=== PATIENT | male | born 1960 | race Caucasian/White ===

== ENCOUNTER 2022-04-05 14:30 | Outpatient (RCR) | payer OTHER | END 2022-04-06 | disposition home or self-care (01) | LOC: WSST | DX: I69.398 Other sequelae of cerebral infarction (principal); R13.0 Aphagia ==

== ENCOUNTER 2022-10-14 13:54 | Outpatient (CLI) | payer OTHER ==
[~2022-10-14] VITALS: Ht 177.8 cm; Wt 89.9 kg
[~2022-10-14 13:54] MED LIST: AMOXICILLIN 8751 TAB PO; ASPIRIN 81M81 MG/TA2 PO; IRON TABLETS325 MG PO; LIPITOR 40MG TA40 MG PO; NORVASC 5MG5 MG/TAB PO; PLAVIX 75MG TAB75 MG PO; PROTONIX20 MG PO; ROXICODONE 55 MG/TAB PO; ZESTRIL 5MG5 MG PO
[2022-10-14 14:12] VITALS: BP 126/62; PULSE 64
--- NOTE | 2022-10-14 14:55 | NUR ---
PT LEFT AT APPROX 1445 WITH . HE WAS ABLE TO AMBULATE TO HIS CAR WITHOUT ASSISTIVE DEVICE. PORT HAD GOOD BLOOD RETURN AND FLUSHED WELL. IT WAS DEACCESSED WITH A HEPARIN FLUSH BEFORE THE 3/4" NEEDLE WAS DISCONTINUED. PT'S VITAL SIGNS WERE WITHIN NORMAL LIMITS DURING THE PROCEDURE.
== END 2022-10-14 14:45 | disposition home or self-care (01) ==
LOC: EUO 13:54
DX: C64.9 Malignant neoplasm of unspecified kidney, except renal pelvis (principal); Z75.2 Other waiting period for investigation and treatment
CPT/HCPCS: J1644

== ENCOUNTER 2022-11-25 14:03 | Outpatient (CLI) | payer OTHER ==
[~2022-11-25] VITALS: Ht 177.8 cm; Wt 87.3 kg
[2022-11-25 14:26] VITALS: BP 112/68; PULSE 72; TEMP 98.3
== END 2022-11-25 14:50 | disposition home or self-care (01) ==
LOC: EUO 14:03
DX: Z45.2 Encounter for adjustment and management of vascular access device (principal)
CPT/HCPCS: J1644

== ENCOUNTER 2023-01-06 13:48 | Outpatient (CLI) | payer OTHER ==
[~2023-01-06] VITALS: Ht 177.8 cm; Wt 85.0 kg
[2023-01-06 14:26] VITALS: BP 119/59; PULSE 64; TEMP 98.5
== END 2023-01-06 15:27 ==
LOC: EUO 13:48
DX: C64.1 Malignant neoplasm of right kidney, except renal pelvis (principal); Z75.2 Other waiting period for investigation and treatment
CPT/HCPCS: J1644

== ENCOUNTER 2023-05-12 13:47 | Outpatient (CLI) | payer OTHER ==
[~2023-05-12] VITALS: Ht 177.8 cm; Wt 85.0 kg
[2023-05-12 14:20] VITALS: BP 149/59; PULSE 66; TEMP 97.7
== END 2023-05-12 14:21 | disposition home or self-care (01) ==
LOC: EUO 13:47
DX: Z45.2 Encounter for adjustment and management of vascular access device (principal); C64.1 Malignant neoplasm of right kidney, except renal pelvis; Z75.2 Other waiting period for investigation and treatment
CPT/HCPCS: J1644

== ENCOUNTER → 2023-08-02 | Outpatient (CLI) | payer OTHER | LOC: COL.RAD 14:02 | DX: C64.1 Malignant neoplasm of right kidney, except renal pelvis (principal); C79.9 Secondary malignant neoplasm of unspecified site; R91.8 Other nonspecific abnormal finding of lung field; K76.9 Liver disease, unspecified; K86.89 Other specified diseases of pancreas | CPT/HCPCS: Q9967 ==

== ENCOUNTER 2023-08-04 13:46 | Outpatient (CLI) | payer OTHER ==
[~2023-08-04] VITALS: Ht 177.8 cm; Wt 89.4 kg
[2023-08-04 14:03] VITALS: BP 130/58; PULSE 65; TEMP 97.3
== END 2023-08-04 14:12 | disposition home or self-care (01) ==
LOC: EUO 13:46
DX: Z45.2 Encounter for adjustment and management of vascular access device (principal)
CPT/HCPCS: J1644

== ENCOUNTER 2023-09-15 13:57 | Outpatient (CLI) | payer OTHER ==
[~2023-09-15] VITALS: Ht 177.8 cm; Wt 89.6 kg
[2023-09-15 14:30] VITALS: BP 143/68; PULSE 65; TEMP 98.5
== END 2023-09-15 14:36 | disposition home or self-care (01) ==
LOC: EUO 13:57
DX: Z45.2 Encounter for adjustment and management of vascular access device (principal)
CPT/HCPCS: J1644

== ENCOUNTER → 2024-05-07 | Outpatient (CLI) | payer OTHER, MEDICARE ==
[~2024-05-07] MED LIST changes: +Iohexol 300 - 100 ML VIAL IV ONE; +NS 100 ML IV SCH
== END ==
LOC: COL.RAD 07:58
DX: C64.1 Malignant neoplasm of right kidney, except renal pelvis (principal); R91.8 Other nonspecific abnormal finding of lung field; K86.89 Other specified diseases of pancreas; R19.00 Intra-abdominal and pelvic swelling, mass and lump, unspecified site; Z98.890 Other specified postprocedural states
CPT/HCPCS: Q9967